=== PATIENT | female | born 1980 | race American Indian/Alaskan Native ===

== ENCOUNTER 2017-01-16 19:30 | Emergency (ER) | payer MEDICAID ==
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
[2017-01-17 05:09] VITALS: BP 118/80
== END 2017-01-17 05:08 | disposition home or self-care (01) ==
LOC: ED 19:30
DX: T23.121A Burn of first degree of single right finger (nail) except thumb, initial encounter (principal); F17.200 Nicotine dependence, unspecified, uncomplicated; X10.2XXA Contact with fats and cooking oils, initial encounter; Y93.G3 Activity, cooking and baking; Y92.000 Kitchen of unspecified non-institutional (private) residence as the place of occurrence of the external cause; Y99.8 Other external cause status
CPT/HCPCS: 99282

== ENCOUNTER 2017-08-20 08:30 | Emergency (ER) | payer MEDICAID, OTHER ==
[2017-08-20 09:23] VITALS: BP 123/84
[2017-08-20] MEDS ORDERED: MOTRIN PO ONE (11:59)
[2017-08-20] MEDS ORDERED: GUAIFENESIN DM SYRUP PO ONE (12:00)
--- NOTE | 2017-08-20 12:01 | Emergency Department Report ---
- General Chief Complaint: Upper Respiratory Infection Stated Complaint: FLU LIKE SYMPTOMS Time Seen by Provider: 08/20/17 10:40 Source: patient Mode of arrival: Ambulatory Limitations: No Limitations - History of Present Illness Initial Comments: 36-year-old female past medical history none presents with complaint of 2-3 days of malaise cough sore throat and runny nose. Patient states that there is slight abnormal smell to her urine. Denies nausea vomiting. States she has slightly productive cough. Patient is awake alert and oriented 3 speaking in full sentences and does not appear toxic does not appear to be in acute distress. MD Complaint: fever, cough, rhinorrhea, nasal congestion Onset/Timin -: days(s) Severity: moderate Improves With: OTC cold medicine Context: sick contacts Associated Symptoms: fever, chills, headache, cough - Related Data Previous Rx's Medication Instructions Recorded Last Taken Type Ibuprofen [Motrin] 800 mg PO Q8HR PRN #30 tablet 01/17/17 Unknown Rx SILVER sulfADIAZINE 50 GRAM 1 applicatio TP BID #1 tube 01/17/17 Unknown Rx [Thermazene 50 Gram] Ibuprofen [Motrin] 800 mg PO Q8HR PRN #30 tablet 08/20/17 Unknown Rx Nitrofurantoin Monohyd/M-Cryst 100 mg PO BID #14 capsule 08/20/17 Unknown Rx [Macrobid 100 mg Capsule] Phenylephrine/Dm/Acetaminop/GG 10 ml PO Q4H PRN #1 liquid 08/20/17 Unknown Rx [Mucinex Fswb-Rhb-Nizpsufhat Lq] Allergies Allergy/AdvReac Type Severity Reaction Status Date / Time Latex, Natural Rubber Allergy Unknown Verified 03/04/16 12:13 ED Review of Systems ROS: Stated complaint: FLU LIKE SYMPTOMS Other details as noted in HPI Constitutional: malaise. denies: chills, fever Eyes: denies: eye pain, eye discharge, vision change ENT: denies: ear pain, throat pain Respiratory: cough. denies: shortness of breath, wheezing Cardiovascular: denies: chest pain, palpitations Endocrine: no symptoms reported Gastrointestinal: denies: abdominal pain, nausea, diarrhea Genitourinary: denies: urgency, dysuria, discharge Musculoskeletal: denies: back pain, joint swelling, arthralgia Skin: denies: rash, lesions Neurological: denies: headache, weakness, paresthesias Psychiatric: denies: anxiety, depression Hematological/Lymphatic: denies: easy bleeding, easy bruising ED Past Medical Hx - Past Medical History Previous Medical History?: Yes Additional medical history: Vaginal delivery x 4 - Surgical History Past Surgical History?: Yes Additional Surgical History: hernia - Social History Smoking Status: Current Every Day Smoker Substance Use Type: Alcohol - Medications Home Medications: Home Medications Medication Instructions Recorded Confirmed Last Taken Type Ibuprofen [Motrin] 800 mg PO Q8HR PRN #30 tablet 01/17/17 Unknown Rx SILVER sulfADIAZINE 50 GRAM 1 applicatio TP BID #1 tube 01/17/17 Unknown Rx [Thermazene 50 Gram] Ibuprofen [Motrin] 800 mg PO Q8HR PRN #30 tablet 08/20/17 Unknown Rx Nitrofurantoin Monohyd/M-Cryst 100 mg PO BID #14 capsule 08/20/17 Unknown Rx [Macrobid 100 mg Capsule] Phenylephrine/Dm/Acetaminop/GG 10 ml PO Q4H PRN #1 liquid 08/20/17 Unknown Rx [Mucinex Fyfr-Ukg-Gbvuojksrp Lq] ED Physical Exam - General Limitations: No Limitations General appearance: alert, in no apparent distress - Head Head exam: Present: atraumatic, normocephalic - Eye Eye exam: Present: normal appearance, PERRL, EOMI - ENT ENT exam: Present: mucous membranes moist - Neck Neck exam: Present: normal inspection, full ROM - Respiratory Respiratory exam: Present: normal lung sounds bilaterally. Absent: respiratory distress - Cardiovascular Cardiovascular Exam: Present: regular rate, normal rhythm. Absent: systolic murmur, diastolic murmur, rubs, gallop - GI/Abdominal GI/Abdominal exam: Present: soft, normal bowel sounds - Extremities Exam Extremities exam: Present: normal inspection - Back Exam Back exam: Present: normal inspection - Neurological Exam Neurological exam: Present: alert, oriented X3 - Psychiatric Psychiatric exam: Present: normal affect, normal mood - Skin Skin exam: Present: warm, dry, intact, normal color. Absent: rash ED Course Vital Signs 08/20/17 08/20/17 09:20 12:14 Temperature 98.4 F Pulse Rate 68 Respiratory 20 22 Rate Blood Pressure 123/84 O2 Sat by Pulse 97 Oximetry ED Medical Decision Making - Medical Decision Making A/P: Urinary tract infection, URI 1-Mucinex when necessary, Motrin when necessary, course of Macrobid 2-follow up with primary care doctor 3-chest x-ray unremarkable. Flu and strep negative. 4- vital signs stable for discharge Critical care attestation.: If time is entered above; I have spent that time in minutes in the direct care of this critically ill patient, excluding procedure time. ED Disposition Clinical Impression: Viral syndrome Upper respiratory infection Qualifiers: URI type: unspecified URI Qualified Code(s): J06.9 - Acute upper respiratory infection, unspecified Urinary tract infection Qualifiers: Urinary tract infection type: acute cystitis Hematuria presence: without hematuria Qualified Code(s): N30.00 - Acute cystitis without hematuria Disposition: TO HOME OR SELFCARE Is pt being admited?: No Does the pt Need Aspirin: No Condition: Stable Instructions: Urinary Tract Infection in Women (ED), Cold Symptoms (ED), Viral Syndrome (ED), Upper Respiratory Infection (ED) Prescriptions: Ibuprofen [Motrin] 800 mg PO Q8HR PRN #30 tablet PRN Reason: Pain Nitrofurantoin Monohyd/M-Cryst [Macrobid 100 mg Capsule] 100 mg PO BID #14 capsule Phenylephrine/Dm/Acetaminop/GG [Mucinex Bgjh-Lyp-Cpmnmqniyh Lq] 10 ml PO Q4H PRN #1 liquid PRN Reason: Cough Referrals: XU HERNANDEZ MD [Primary Care Provider] - 3-5 Days Forms: Work/School Release Form(ED) Time of Disposition: 14:48
--- NOTE | 2017-08-20 12:36 | XRay Report ---
CHEST 2 VIEWS INDICATION: Worsening cough. Evaluate for pneumonia. COMPARISON: None similar at this institution. FINDINGS: PA and lateral chest radiographs demonstrate normal cardiomediastinal silhouette. Right hemidiaphragm slightly elevated with minimal crowding of right lung markings. No dense focal consolidation, pleural effusions or CHF. Intact bones. CONCLUSION: No acute disease in the chest. Thank you for the opportunity to participate in this patient's care.
[2017-08-20 14:28] LABS: Bilirubin,Urine NEG (Negative); Blood,Urine LG (Negative); Ketones,Urine NEG (Negative); Leukocyte Esterase,Urine TR (Negative); Mucus,Urine 2+ /HPF; Nitrite,Urine NEG (Negative); Protein,Urine <15 mg/dL mg/dL (Negative); Urobilinogen,Urine < 2.0 mg/dL (<2.0)
== END 2017-08-20 14:58 | disposition home or self-care (01) ==
LOC: ED 08:30
DX: B34.9 Viral infection, unspecified (principal); J06.9 Acute upper respiratory infection, unspecified; N30.00 Acute cystitis without hematuria; F17.200 Nicotine dependence, unspecified, uncomplicated; Z91.040 Latex allergy status
CPT/HCPCS: 71020; 81001; 81025; 87086; 87116; 87400; 87430; 87491

== ENCOUNTER 2018-04-02 05:56 | Emergency (ER) | payer OTHER ==
[2018-04-02] MEDS ORDERED: TORADOL IM ONE (06:42)
--- NOTE | 2018-04-02 08:24 | XRay Report ---
LUMBOSACRAL SPINE, 3 VIEWS: History: Back pain Findings: The vertebral bodies, disk spaces and posterior elements are intact. No compression deformity or malalignment. The SI joints are symmetric and unremarkable. Impression: 1. No evidence for acute injury to the lumbar spine.
--- NOTE | 2018-04-02 08:25 | XRay Report ---
CERVICAL SPINE, 3 views: History: Neck pain. Findings: The vertebral bodies, disk spaces, posterior elements and prevertebral soft tissues are unremarkable. The dens is intact. No acute fracture or malalignment is identified. Impression: 1. No evidence for acute injury to the cervical spine.
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
[2018-04-02 10:04] VITALS: BP 141/96
== END 2018-04-02 10:21 | disposition home or self-care (01) ==
LOC: ED 05:56
DX: S13.9XXA Sprain of joints and ligaments of unspecified parts of neck, initial encounter (principal); S33.5XXA Sprain of ligaments of lumbar spine, initial encounter; Z91.040 Latex allergy status; V89.2XXA Person injured in unspecified motor-vehicle accident, traffic, initial encounter; Y93.89 Activity, other specified; Y92.89 Other specified places as the place of occurrence of the external cause; Y99.8 Other external cause status
CPT/HCPCS: 72040; 72100; 96372; 99284; J1885

== ENCOUNTER 2018-08-21 15:12 | Emergency (ER) | payer OTHER ==
[2018-08-21 15:31] VITALS: BP 161/88
--- NOTE | 2018-08-21 17:59 | Emergency Department Report ---
ED Back Pain/Injury HPI - General Chief Complaint: Back Pain/Injury Stated Complaint: LEFT LEG PAIN/LOWER BACK PAIN Time Seen by Provider: 08/21/18 17:32 Source: patient Limitations: No Limitations - History of Present Illness MD Complaint: back pain, back injury -: Gradual Similar Symptoms Previously: Yes Place: home Severity: mild Quality: sharp Consistency: constant Improves With: movement - Related Data Previous Rx's Medication Instructions Recorded Last Taken Type Ibuprofen [Motrin] 800 mg PO Q8HR PRN #30 tablet 01/17/17 Unknown Rx SILVER sulfADIAZINE 50 GRAM 1 applicatio TP BID #1 tube 01/17/17 Unknown Rx [Thermazene 50 Gram] Ibuprofen [Motrin] 800 mg PO Q8HR PRN #30 tablet 08/20/17 Unknown Rx Nitrofurantoin Monohyd/M-Cryst 100 mg PO BID #14 capsule 08/20/17 Unknown Rx [Macrobid 100 mg Capsule] Phenylephrine/Dm/Acetaminop/GG 10 ml PO Q4H PRN #1 liquid 08/20/17 Unknown Rx [Mucinex Hobl-Fqq-Icutvoofre Lq] Naproxen [Naprosyn] 500 mg PO Q12H PRN #14 tablet 04/02/18 Unknown Rx Ketorolac [Toradol] 10 mg PO Q6H PRN #15 tablet 08/21/18 Unknown Rx Methocarbamol [Robaxin] 750 mg PO Q8H PRN #21 tablet 08/21/18 Unknown Rx traMADol [Ultram] 50 mg PO Q6HR PRN #20 tablet 08/21/18 Unknown Rx Allergies Allergy/AdvReac Type Severity Reaction Status Date / Time Latex, Natural Rubber Allergy Hives Verified 08/21/18 15:28 ED Review of Systems ROS: Stated complaint: LEFT LEG PAIN/LOWER BACK PAIN Other details as noted in HPI ED Past Medical Hx - Past Medical History Previous Medical History?: No Additional medical history: Vaginal delivery x 4 - Surgical History Past Surgical History?: Yes Additional Surgical History: hernia - Social History Smoking Status: Never Smoker Substance Use Type: None - Medications Home Medications: Home Medications Medication Instructions Recorded Confirmed Last Taken Type Ibuprofen [Motrin] 800 mg PO Q8HR PRN #30 tablet 01/17/17 Unknown Rx SILVER sulfADIAZINE 50 GRAM 1 applicatio TP BID #1 tube 01/17/17 Unknown Rx [Thermazene 50 Gram] Ibuprofen [Motrin] 800 mg PO Q8HR PRN #30 tablet 08/20/17 Unknown Rx Nitrofurantoin Monohyd/M-Cryst 100 mg PO BID #14 capsule 08/20/17 Unknown Rx [Macrobid 100 mg Capsule] Phenylephrine/Dm/Acetaminop/GG 10 ml PO Q4H PRN #1 liquid 08/20/17 Unknown Rx [Mucinex Nuvk-Rxe-Msiwqerbnh Lq] Naproxen [Naprosyn] 500 mg PO Q12H PRN #14 tablet 04/02/18 Unknown Rx Ketorolac [Toradol] 10 mg PO Q6H PRN #15 tablet 08/21/18 Unknown Rx Methocarbamol [Robaxin] 750 mg PO Q8H PRN #21 tablet 08/21/18 Unknown Rx traMADol [Ultram] 50 mg PO Q6HR PRN #20 tablet 08/21/18 Unknown Rx ED Physical Exam - General Limitations: No Limitations ED Course Vital Signs 08/21/18 15:28 Temperature 99 F Pulse Rate 79 Respiratory 18 Rate Blood Pressure 161/88 O2 Sat by Pulse 98 Oximetry Critical care attestation.: If time is entered above; I have spent that time in minutes in the direct care of this critically ill patient, excluding procedure time. ED Disposition Clinical Impression: Sacroiliac joint pain Disposition: DC- TO HOME OR SELFCARE Is pt being admited?: No Does the pt Need Aspirin: No Condition: Stable Instructions: Lumbar Radiculopathy (ED) Prescriptions: Ketorolac [Toradol] 10 mg PO Q6H PRN #15 tablet PRN Reason: Pain Methocarbamol [Robaxin] 750 mg PO Q8H PRN #21 tablet PRN Reason: Spasms traMADol [Ultram] 50 mg PO Q6HR PRN #20 tablet PRN Reason: Pain Referrals: PRIMARY CARE, [Primary Care Provider] - 3-5 Days LY JACKSON MD [Staff Physician] - 3-5 Days
== END 2018-08-21 18:10 | disposition home or self-care (01) ==
LOC: ED 15:12
DX: M53.3 Sacrococcygeal disorders, not elsewhere classified (principal); Z91.040 Latex allergy status; Z91.09 Other allergy status, other than to drugs and biological substances
CPT/HCPCS: 99282

== ENCOUNTER 2019-01-21 11:11 | Emergency (ER) | payer OTHER ==
[2019-01-21 11:16] VITALS: BP 113/81
--- NOTE | 2019-01-21 11:56 | Emergency Department Report ---
HPI - General Chief Complaint: Upper Respiratory Infection - HPI HPI: 38-year-old female presents to the emergency department with a complaint of sinus pressure, sore throat, cough, chills, sweats and body aches going on for the past few days. The cough is mixed dry and productive. She did not actually check herself for any fever. She is a tobacco smoker but denies any illicit drug use. She denies any chest pain, shortness of breath or back pain. No recent travel or sick contacts at home. She has a primary care physician for follow-up. She has not taken anything for her symptoms prior to arrival. ED Past Medical Hx - Past Medical History Previous Medical History?: No Additional medical history: Vaginal delivery x 4 - Surgical History Past Surgical History?: Yes Additional Surgical History: hernia - Social History Smoking Status: Current Every Day Smoker - Medications Home Medications: Home Medications Medication Instructions Recorded Confirmed Last Taken Type Ibuprofen [Motrin] 800 mg PO Q8HR PRN #30 tablet 01/17/17 Unknown Rx SILVER sulfADIAZINE 50 GRAM 1 applicatio TP BID #1 tube 01/17/17 Unknown Rx [Thermazene 50 Gram] Ibuprofen [Motrin] 800 mg PO Q8HR PRN #30 tablet 08/20/17 Unknown Rx Nitrofurantoin Monohyd/M-Cryst 100 mg PO BID #14 capsule 08/20/17 Unknown Rx [Macrobid 100 mg Capsule] Phenylephrine/Dm/Acetaminop/GG 10 ml PO Q4H PRN #1 liquid 08/20/17 Unknown Rx [Mucinex Lpth-Cbd-Bhkcnjrzdv Lq] Naproxen [Naprosyn] 500 mg PO Q12H PRN #14 tablet 04/02/18 Unknown Rx Ketorolac [Toradol] 10 mg PO Q6H PRN #15 tablet 08/21/18 Unknown Rx methOCARBAMOL [Robaxin] 750 mg PO Q8H PRN #21 tablet 08/21/18 Unknown Rx traMADol [Ultram] 50 mg PO Q6HR PRN #20 tablet 08/21/18 Unknown Rx Fluticasone [Flonase] 1 spray NS QDAY #1 bottle 01/21/19 Unknown Rx Loratadine/Pseudoephedrine 1 tab PO DAILY #6 tablet 01/21/19 Unknown Rx [Claritin-D 24Hr] ED Review of Systems ROS: Stated complaint: SINUS/COUGH/TIGHTNESS IN CHEST Other details as noted in HPI Constitutional: chills, diaphoresis Eyes: denies: eye pain, vision change ENT: throat pain. denies: ear pain Respiratory: cough. denies: shortness of breath Cardiovascular: denies: chest pain, palpitations Gastrointestinal: denies: abdominal pain, vomiting Genitourinary: denies: dysuria, discharge Musculoskeletal: myalgia. denies: joint swelling Skin: denies: rash, lesions Neurological: denies: headache, weakness Physical Exam - Physical Exam Vital Signs: Vital Signs 01/21/19 11:15 Temperature 98.2 F Pulse Rate 87 Respiratory 16 Rate Blood Pressure 113/81 O2 Sat by Pulse 98 Oximetry Physical Exam: GENERAL: The patient is well-developed well-nourished. HENT: Normocephalic. Atraumatic. Patient has moist mucous membranes. Oropharynx is clear without tonsillar hypertrophy, erythema or exudates. She has some tenderness to palpation over the maxillary sinuses. Boggy nasal mucosa and patient speaks with nasally voice secondary to congestion. EYES: Extraocular motions are intact. Pupils equal reactive to light bilaterally. NECK: Supple. Trachea is midline. CHEST/LUNGS: Clear to auscultation. There is no respiratory distress noted. No cough heard during examination. No tachypnea or accessory muscle use. HEART/CARDIOVASCULAR: Regular. There is no tachycardia. There is no murmur. ABDOMEN: Abdomen is soft, nontender. Patient has normal bowel sounds. There is no abdominal distention. SKIN: Skin is warm and dry. NEURO: The patient is awake, alert, and oriented. The patient is cooperative. The patient has no focal neurologic deficits. MUSCULOSKELETAL: There is no tenderness or deformity. There is no evidence of acute injury. ED Course Vital Signs 01/21/19 11:15 Temperature 98.2 F Pulse Rate 87 Respiratory 16 Rate Blood Pressure 113/81 O2 Sat by Pulse 98 Oximetry ED Medical Decision Making - Radiology Data Radiology results: image reviewed interpreted by me: Chest x-ray does not show any acute process. There are no pleural effusions, obvious pneumonia and there is no pneumothorax. - Medical Decision Making Patient presents with a few days of head and chest congestion, sore throat and s ome cold-like symptoms. On examination the tonsils do not look enlarged, erythematous and do not have any exudates. A rapid strep test was completed and resulted as negative. A chest x-ray was done that does not show any pleural effusions, pneumonia, focal consolidation, pneumothorax, or any other acute process. Vital signs stable including being afebrile. She appeared most consistent with a viral upper respiratory infection. She has been given some Flonase and Claritin-D. She has good follow-up with primary care. She will return to the ER with any worsening of her symptoms or any acute distress. - Differential Diagnosis viral URI, pneumonia, sinusitis, allergic rhinitis Critical Care Time: No Critical care attestation.: If time is entered above; I have spent that time in minutes in the direct care of this critically ill patient, excluding procedure time. ED Disposition Clinical Impression: Viral pharyngitis, Viral syndrome Upper respiratory infection Qualifiers: URI type: unspecified URI Qualified Code(s): J06.9 - Acute upper respiratory infection, unspecified Disposition: DC- TO HOME OR SELFCARE Is pt being admited?: No Condition: Stable Instructions: Pharyngitis (ED), Upper Respiratory Infection (ED), Viral Syndrome (ED) Additional Instructions: Please follow-up with your primary care physician in the next few days. Return to the emergency Department with any worsening of your symptoms or any acute distress. Prescriptions: Loratadine/Pseudoephedrine [Claritin-D 24Hr] 1 tab PO DAILY #6 tablet Fluticasone [Flonase] 1 spray NS QDAY #1 bottle Referrals: PCP, Your [Other] - 2-3 Days Forms: Work/School Release Form(ED) Time of Disposition: 11:30
--- NOTE | 2019-01-21 14:59 | XRay Report ---
ROUTINE CHEST, TWO VIEWS: HISTORY: Cough. The trachea, heart, mediastinal contour, lung mad[place] and bony thorax are unremarkable. IMPRESSION: Unremarkable chest x-ray.
== END 2019-01-21 13:08 | disposition home or self-care (01) ==
LOC: ED 11:11
DX: J02.9 Acute pharyngitis, unspecified (principal); J06.9 Acute upper respiratory infection, unspecified; B34.9 Viral infection, unspecified; F17.200 Nicotine dependence, unspecified, uncomplicated; Z91.040 Latex allergy status
CPT/HCPCS: 71046; 87116; 87430; 99283

== ENCOUNTER 2019-02-17 06:27 | Emergency (ER) | payer OTHER ==
[2019-02-17] MEDS ORDERED: ASPIRIN PO ONE (06:49)
[2019-02-17 07:00] LABS: Basophils # (Auto) 0.1 K/mm3 (0.0-0.1); Basophils % (Auto) 0.6 % (0.0-1.8); Eosinophils # (Auto) 0.1 K/mm3 (0.0-0.4); Eosinophils % (Auto) 0.7 % (0.0-4.3); Hematocrit 40.9 % (30.3-42.9); Hemoglobin 13.9 gm/dl (10.1-14.3); Lymphocytes # (Auto) 3.3 K/mm3 (1.2-5.4); Lymphocytes % (Auto) 25.4 % (13.4-35.0); Mean Corpuscular HGB Conc 34 % (30-34); Mean Corpuscular Volume 76 fl (79-97); Monocytes # (Auto) 0.6 K/mm3 (0.0-0.8); Platelet Count 207 K/mm3 (140-440); Red Blood Count 5.35 M/mm3 (3.65-5.03); Red Cell Distribution Width 14.9 % (13.2-15.2)
--- NOTE | 2019-02-17 07:04 | XRay Report ---
PROCEDURE: XR CHEST 1V AP TECHNIQUE: Chest radiograph single view. HISTORY: Chest Pain COMPARISONS: 08/20/2017 . FINDINGS: No mediastinal shift. Cardiac silhouette is not enlarged. No pneumothorax, effusion, or focal pulmona ry opacity identified. No acute skeletal findings. IMPRESSION: No acute pulmonary finding identified. This document is electronically signed by Clayton Franks MD., February 17 2019 07:03:09 AM ET
[2019-02-17 07:17] LABS: BUN/Creatinine Ratio 11; Blood Urea Nitrogen 9 mg/dL (7-17); Calcium 9.1 mg/dL (8.4-10.2); Hemolysis Index 21
[2019-02-17] MEDS ORDERED: TORADOL IV ONE (08:49)
[2019-02-17] MEDS ORDERED: MORPHINE IV ONE (08:49)
--- NOTE | 2019-02-17 09:10 | Emergency Department Report ---
ED Chest Pain HPI - General Chief Complaint: Chest Pain Stated Complaint: CHEST PAIN JERRY Time Seen by Provider: 02/17/19 08:29 Source: patient Mode of arrival: Ambulatory Limitations: No Limitations - History of Present Illness Initial Comments: 38-year-old female with no past medical history presents to ED with complaint of left-sided chest pain since last night. States pain is located underneath the left breast, nonradiating, sharp in nature. Pain is worse with inspiration. Patient reported some relief with leaning over and applying pressure to the area. He reports cough. Denies fever, shortness of breath, nausea, diaphoresis. She denies any leg pain or swelling. MD Complaint: chest pain -: Last night Onset: during rest Pain Location: left chest Pain Radiation: none Severity: moderate Severity scale (0 -10): 10 Quality: sharp Consistency: constant Improves With: nothing Worsens With: inspiration re: denies: nausea, vomting, diaphoresis, dyspnea Other Symptoms: cough. denies: fever, leg swelling Treatments Prior to Arrival: none - Related Data Previous Rx's Medication Instructions Recorded Last Taken Type Ibuprofen [Motrin] 800 mg PO Q8HR PRN #30 tablet 01/17/17 Unknown Rx SILVER sulfADIAZINE 50 GRAM 1 applicatio TP BID #1 tube 01/17/17 Unknown Rx [Thermazene 50 Gram] Ibuprofen [Motrin] 800 mg PO Q8HR PRN #30 tablet 08/20/17 Unknown Rx Nitrofurantoin Monohyd/M-Cryst 100 mg PO BID #14 capsule 08/20/17 Unknown Rx [Macrobid 100 mg Capsule] Phenylephrine/Dm/Acetaminop/GG 10 ml PO Q4H PRN #1 liquid 08/20/17 Unknown Rx [Mucinex Txjp-Dnx-Snrozyfuhe Lq] Naproxen [Naprosyn] 500 mg PO Q12H PRN #14 tablet 04/02/18 Unknown Rx Ketorolac [Toradol] 10 mg PO Q6H PRN #15 tablet 08/21/18 Unknown Rx methOCARBAMOL [Robaxin] 750 mg PO Q8H PRN #21 tablet 08/21/18 Unknown Rx traMADol [Ultram] 50 mg PO Q6HR PRN #20 tablet 08/21/18 Unknown Rx Fluticasone [Flonase] 1 spray NS QDAY #1 bottle 01/21/19 Unknown Rx Loratadine/Pseudoephedrine 1 tab PO DAILY #6 tablet 01/21/19 Unknown Rx [Claritin-D 24Hr] Naproxen [Naprosyn] 500 mg PO BID #20 tablet 02/17/19 Unknown Rx Allergies Allergy/AdvReac Type Severity Reaction Status Date / Time Latex, Natural Rubber Allergy Hives Verified 08/21/18 15:28 Heart Score - HEART Score History: Slightly suspicious EKG: Normal Age: < 45 Risk factors: No known risk factors Troponin: < normal limit HEART Score: 0 ED Review of Systems ROS: Stated complaint: CHEST PAIN JERRY Other details as noted in HPI Comment: All other systems reviewed and negative Constitutional: denies: chills, fever Respiratory: cough Cardiovascular: chest pain Gastrointestinal: denies: nausea, vomiting Musculoskeletal: other (denies leg pain or swelling) ED Past Medical Hx - Past Medical History Previous Medical History?: No Additional medical history: Vaginal delivery x 4 - Surgical History Past Surgical History?: Yes Additional Surgical History: hernia - Social History Smoking Status: Current Every Day Smoker Substance Use Type: None - Medications Home Medications: Home Medications Medication Instructions Recorded Confirmed Last Taken Type Ibuprofen [Motrin] 800 mg PO Q8HR PRN #30 tablet 01/17/17 Unknown Rx SILVER sulfADIAZINE 50 GRAM 1 applicatio TP BID #1 tube 01/17/17 Unknown Rx [Thermazene 50 Gram] Ibuprofen [Motrin] 800 mg PO Q8HR PRN #30 tablet 08/20/17 Unknown Rx Nitrofurantoin Monohyd/M-Cryst 100 mg PO BID #14 capsule 08/20/17 Unknown Rx [Macrobid 100 mg Capsule] Phenylephrine/Dm/Acetaminop/GG 10 ml PO Q4H PRN #1 liquid 08/20/17 Unknown Rx [Mucinex Dltp-Rgx-Uvhxbutgxa Lq] Naproxen [Naprosyn] 500 mg PO Q12H PRN #14 tablet 04/02/18 Unknown Rx Ketorolac [Toradol] 10 mg PO Q6H PRN #15 tablet 08/21/18 Unknown Rx methOCARBAMOL [Robaxin] 750 mg PO Q8H PRN #21 tablet 08/21/18 Unknown Rx traMADol [Ultram] 50 mg PO Q6HR PRN #20 tablet 08/21/18 Unknown Rx Fluticasone [Flonase] 1 spray NS QDAY #1 bottle 01/21/19 Unknown Rx Loratadine/Pseudoephedrine 1 tab PO DAILY #6 tablet 01/21/19 Unknown Rx [Claritin-D 24Hr] Naproxen [Naprosyn] 500 mg PO BID #20 tablet 02/17/19 Unknown Rx ED Physical Exam - General Limitations: No Limitations General appearance: alert, in no apparent distress - Head Head exam: Present: atraumatic, normocephalic - Eye Eye exam: Present: normal appearance - ENT ENT exam: Present: mucous membranes moist - Neck Neck exam: Present: normal inspection - Respiratory Respiratory exam: Present: normal lung sounds bilaterally. Absent: respiratory distress - GI/Abdominal GI/Abdominal exam: Present: soft. Absent: distended, tenderness - Extremities Exam Extremities exam: Present: normal inspection. Absent: pedal edema, calf ten derness - Neurological Exam Neurological exam: Present: alert, oriented X3 - Psychiatric Psychiatric exam: Present: normal affect, normal mood - Skin Skin exam: Present: warm, dry, intact, normal color ED Course Vital Signs 02/17/19 02/17/19 02/17/19 08:44 08:48 09:22 Pulse Rate 75 Respiratory 15 15 15 Rate Blood Pressure 117/76 [Left] O2 Sat by Pulse 96 96 Oximetry 02/17/19 02/17/19 02/17/19 09:39 11:23 12:32 Pulse Rate 69 53 L 54 L Respiratory 14 14 13 Rate Blood Pressure 146/87 122/63 113/73 [Left] O2 Sat by Pulse 100 98 97 Oximetry ED Medical Decision Making - Lab Data Result diagrams: 02/17/19 06:51 02/17/19 06:51 - EKG Data -: EKG Interpreted by [place] EKG shows normal: sinus rhythm, axis, intervals, QRS complexes, ST-T waves Rate: normal - EKG Data Interpretation: no acute changes - Radiology Data Radiology results: report reviewed, image reviewed - Medical Decision Making 38-year-old female with pleuritic chest pain since last night. Vitals normal. EKG normal, troponin negative, chest x-ray normal. D-dimer elevated, so CTA Chest was obtained which is also normal. Chest discomfort likely due to pleurisy. Will discharge home with prescription for Naprosyn and advised PCP follow-up. Return precautions given. - Differential Diagnosis pneumonia, PE, ACS, pleurisy Critical care attestation.: If time is entered above; I have spent that time in minutes in the direct care of this critically ill patient, excluding procedure time. ED Disposition Clinical Impression: Chest pain, Pleurisy Disposition: DC-01 TO HOME OR SELFCARE Is pt being admited?: No Condition: Stable Instructions: Chest Pain (ED), Pleurisy (ED) Prescriptions: Naproxen [Naprosyn] 500 mg PO BID #20 tablet Referrals: ALESHA URIBECOLUMBIA MD RUBÉN [Primary Care Provider] - 3-5 Days PRIMARY CAREMD [Referring] - 3-5 Days Forms: Work/School Release Form(ED) Time of Disposition: 12:48
[2019-02-17] MEDS ORDERED: ASPIRIN ONE (09:13)
[2019-02-17 09:18] LABS: INR 0.96 (0.87-1.13)
[2019-02-17 09:19] LABS: Partial Thromboplastin Time 29.1 Sec. (24.2-36.6)
--- NOTE | 2019-02-17 11:28 | Cat Scan Report ---
CTA CHEST: HISTORY: chest pain. COMPARISON: none. TECHNIQUE: Helical CT in 1.25mm intervals following IV contrast. Pulmonary embolus protocol. Sagittal and coronal reformatted images. Rotational MIP images. FINDINGS: Contrast bolus is satisfactory. No pulmonary embolus is identified. Thyroid gland: Normal. Tracheobronchial tree: Normal. Esophagus: Normal. Heart: Normal. Pericardium: Normal. Mediastinum: Normal. Lung Doan: Normal. Pleural Spaces: Trace right pleural fluid is identified layering posteriorly. No left pleural effusion. No pneumothorax. Musculoskeletal: Normal. IMPRESSION: No evidence for pulmonary embolus. Trace right pleural effusion of uncertain significance. Pleurisy?
[2019-02-17 12:33] VITALS: BP 113/73
== END 2019-02-17 13:16 | disposition home or self-care (01) ==
LOC: ED 06:27
DX: R09.1 Pleurisy (principal); F17.200 Nicotine dependence, unspecified, uncomplicated; Z79.899 Other long term (current) drug therapy; Z91.040 Latex allergy status; Z91.048 Other nonmedicinal substance allergy status
CPT/HCPCS: 36415; 71045; 71275; 80048; 84484; 84703; 85025; 85379; 85610; 85730; 93005; 93010; 96374; 96375; 99285; J1885; J2270; Q9967

== ENCOUNTER 2019-03-27 11:22 | Emergency (ER) | payer OTHER ==
[2019-03-27 11:31] VITALS: BP 120/77
--- NOTE | 2019-03-27 11:32 | Event Note ---
ED Screening Note Date of service: 03/27/19 Time: 11:30 ED Screening Note: This is a 38 y.o. F. that presents to the ER with redness and pruritic rash to face since this morning. Current smoker. Denies drooling or difficulty swallowing. This initial assessment/diagnostic orders/clinical plan/treatment(s) is/are subject to change based on patients health status, clinical progression and re- assessment by fellow clinical providers in the ED. Further treatment and workup at subsequent clinical providers discretion. Patient/guardian urged not to elope from the ED as their condition may be serious if not clinically assessed and managed. Initial orders include:
[2019-03-27] MEDS ORDERED: BENADRYL PO ONE (11:46)
[2019-03-27] MEDS ORDERED: DELTASONE PO ONE (12:00)
--- NOTE | 2019-03-27 12:38 | Emergency Department Report ---
ED General Adult HPI - General Chief complaint: Allergic Reaction Stated complaint: FACE REDNESS/ITCHY Time Seen by Provider: 03/27/19 11:29 Source: patient Mode of arrival: Ambulatory Limitations: No Limitations - History of Present Illness Initial comments: Patient is a 38-year-old female who is presenting status post allergic reaction. 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 She denies any new foods or any change in her regimen. Patient states that she has a rash to the face and neck. She denies any difficulty swallowing or breathing at this time. His been no nausea vomiting. - Related Data Previous Rx's Medication Instructions Recorded Last Taken Type Ibuprofen [Motrin] 800 mg PO Q8HR PRN #30 tablet 01/17/17 Unknown Rx SILVER sulfADIAZINE 50 GRAM 1 applicatio TP BID #1 tube 01/17/17 Unknown Rx [Thermazene 50 Gram] Ibuprofen [Motrin] 800 mg PO Q8HR PRN #30 tablet 08/20/17 Unknown Rx Nitrofurantoin Monohyd/M-Cryst 100 mg PO BID #14 capsule 08/20/17 Unknown Rx [Macrobid 100 mg Capsule] Phenylephrine/Dm/Acetaminop/GG 10 ml PO Q4H PRN #1 liquid 08/20/17 Unknown Rx [Mucinex Seza-Tqo-Teekunsaar Lq] Naproxen [Naprosyn] 500 mg PO Q12H PRN #14 tablet 04/02/18 Unknown Rx Ketorolac [Toradol] 10 mg PO Q6H PRN #15 tablet 08/21/18 Unknown Rx methOCARBAMOL [Robaxin] 750 mg PO Q8H PRN #21 tablet 08/21/18 Unknown Rx traMADol [Ultram] 50 mg PO Q6HR PRN #20 tablet 08/21/18 Unknown Rx Fluticasone [Flonase] 1 spray NS QDAY #1 bottle 01/21/19 Unknown Rx Loratadine/Pseudoephedrine 1 tab PO DAILY #6 tablet 01/21/19 Unknown Rx [Claritin-D 24Hr] Naproxen [Naprosyn] 500 mg PO BID #20 tablet 02/17/19 Unknown Rx diphenhydrAMINE [Benadryl CAP] 25 mg PO Q8HR PRN #10 capsule 03/27/19 Unknown Rx predniSONE [Deltasone] 20 mg PO QDAY #5 tab 03/27/19 Unknown Rx Allergies Allergy/AdvReac Type Severity Reaction Status Date / Time Latex, Natural Rubber Allergy Hives Verified 08/21/18 15:28 ED Review of Systems ROS: Stated complaint: FACE REDNESS/ITCHY Other details as noted in HPI Comment: All other systems reviewed and negative ED Past Medical Hx - Past Medical History Previous Medical History?: No Additional medical history: Vaginal delivery x 4 - Surgical History Additional Surgical History: Hernia repair - Social History Smoking Status: Current Every Day Smoker Substance Use Type: None - Medications Home Medications: Home Medications Medication Instructions Recorded Confirmed Last Taken Type Ibuprofen [Motrin] 800 mg PO Q8HR PRN #30 tablet 01/17/17 Unknown Rx SILVER sulfADIAZINE 50 GRAM 1 applicatio TP BID #1 tube 01/17/17 Unknown Rx [Thermazene 50 Gram] Ibuprofen [Motrin] 800 mg PO Q8HR PRN #30 tablet 08/20/17 Unknown Rx Nitrofurantoin Monohyd/M-Cryst 100 mg PO BID #14 capsule 08/20/17 Unknown Rx [Macrobid 100 mg Capsule] Phenylephrine/Dm/Acetaminop/GG 10 ml PO Q4H PRN #1 liquid 08/20/17 Unknown Rx [Mucinex Aoaw-Bxo-Wuihysnlnw Lq] Naproxen [Naprosyn] 500 mg PO Q12H PRN #14 tablet 04/02/18 Unknown Rx Ketorolac [Toradol] 10 mg PO Q6H PRN #15 tablet 08/21/18 Unknown Rx methOCARBAMOL [Robaxin] 750 mg PO Q8H PRN #21 tablet 08/21/18 Unknown Rx traMADol [Ultram] 50 mg PO Q6HR PRN #20 tablet 08/21/18 Unknown Rx Fluticasone [Flonase] 1 spray NS QDAY #1 bottle 01/21/19 Unknown Rx Loratadine/Pseudoephedrine 1 tab PO DAILY #6 tablet 01/21/19 Unknown Rx [Claritin-D 24Hr] Naproxen [Naprosyn] 500 mg PO BID #20 tablet 02/17/19 Unknown Rx diphenhydrAMINE [Benadryl CAP] 25 mg PO Q8HR PRN #10 capsule 03/27/19 Unknown Rx predniSONE [Deltasone] 20 mg PO QDAY #5 tab 03/27/19 Unknown Rx ED Physical Exam - General Limitations: No Limitations General appearance: alert, in no apparent distress - Head Head exam: Present: atraumatic, normocephalic - Eye Eye exam: Present: normal appearance, PERRL, EOMI - ENT ENT exam: Present: mucous membranes moist - Neck Neck exam: Present: normal inspection - Respiratory Respiratory exam: Present: normal lung sounds bilaterally. Absent: respiratory distress, wheezes, rales, rhonchi - Cardiovascular Cardiovascular Exam: Present: regular rate, normal rhythm. Absent: systolic murmur, diastolic murmur, rubs, gallop - GI/Abdominal GI/Abdominal exam: Present: soft, normal bowel sounds. Absent: distended, tenderness, guarding, rebound - Extremities Exam Extremities exam: Present: normal inspection - Back Exam Back exam: Present: normal inspection - Neurological Exam Neurological exam: Present: alert, oriented X3 - Psychiatric Psychiatric exam: Present: normal affect, normal mood - Skin Skin exam: Present: warm, dry, intact, normal color, rash ED Course Vital Signs 03/27/19 11:30 Temperature 98.3 F Pulse Rate 75 Respiratory 18 Rate Blood Pressure 120/77 O2 Sat by Pulse 98 Oximetry ED Medical Decision Making - Medical Decision Making Patient is a 2-year-old Female was presented status post minor allergic reaction. Patient does not appear to be in anaphylaxis. Patient was given oral Benadryl and prednisone will be discharged home. Critical care attestation.: If time is entered above; I have spent that time in minutes in the direct care of this critically ill patient, excluding procedure time. ED Disposition Clinical Impression: Allergic reaction Qualifiers: Encounter type: initial encounter Qualified Code(s): T78.40XA - Allergy, unspecified, initial encounter Disposition: DC-01 TO HOME OR SELFCARE Is pt being admited?: No Does the pt Need Aspirin: No Condition: Stable Instructions: Allergies (ED) Referrals: CARLTON DUPREE MD [Primary Care Provider] - 3-5 Days Time of Disposition: 12:38
== END 2019-03-27 12:44 | disposition home or self-care (01) ==
LOC: ED 11:22 → EEVIPCON 11:22 → ED 12:44
DX: T78.40XA Allergy, unspecified, initial encounter (principal); F17.200 Nicotine dependence, unspecified, uncomplicated; Z91.040 Latex allergy status; Y92.89 Other specified places as the place of occurrence of the external cause
CPT/HCPCS: 99282; J7512

== ENCOUNTER 2019-10-26 11:11 | Emergency (ER) | payer SELFPAY ==
[2019-10-26 11:25] VITALS: BP 143/90
[2019-10-26] MEDS ORDERED: dexAMETHasone 20 MG/5 ML VIAL IV ONE (11:25)
[2019-10-26] MEDS ORDERED: FAMOTIDINE 20 MG/2 ML INJ IV ONE ×2 (11:25→11:37)
[2019-10-26] MEDS ORDERED: diphenhydrAMINE 50 MG/ML VIAL IV ONE (11:25)
--- NOTE | 2019-10-26 11:25 | Event Note ---
ED Screening Note ED Screening Note: states she took a medication that has acetominophen and benadryl then one hour later began to have a diffuse rash, itching, and felt overheated no SOB no throat swelling no difficulty swallowing PMHx none no allergies to meds LNMP: 2 weeks ago This initial assessment/diagnostic orders/clinical plan/treatment(s) is/are subject to change based on patients health status, clinical progression and re- assessment by fellow clinical providers in the ED. Further treatment and workup at subsequent clinical providers discretion. Patient/guardian urged not to elope from the ED as their condition may be serious if not clinically assessed and managed. Initial orders include: meds/ACC eval
[2019-10-26] MEDS ORDERED: SODIUM CHLORIDE 0.9% 1000 ML 1,000 ML IV ONE (11:31)
[2019-10-26] MEDS ORDERED: SODIUM CHLORIDE 0.9% 1000 ML 1,000 ML ONE (11:37)
[2019-10-26] MEDS ORDERED: dexAMETHasone 20 MG/5 ML VIAL ONE (11:37)
[2019-10-26] MEDS ORDERED: diphenhydrAMINE 50 MG/ML VIAL ONE (11:37)
--- NOTE | 2019-10-26 12:06 | Emergency Department Report ---
ED Rash HPI - HPI Chief Complaint: Skin Rash Stated Complaint: allergic reaction Time Seen by Provider: 10/26/19 11:23 Duration: Today Location: Neck, Chest, Other (face) Suspected Cause: Medication Rash Symptoms: Yes Itching, No Facial Swelling, No Tongue/Oral Swelling, No Breathing Difficulties, No Choking Sensation, No Wheezing/Dyspnea, No Peeling, No Blistering, No Fever, No Lightheaded, No Malaise, No Myalgias Severity: mild Other History: This is a 38-year-old female nontoxic, well nourished in appearance, no acute signs of distress presents to the ED with c/o of rash and itching after taking medication [id number] earlier today. Patient states it is itching and redness. Patient denies any drooling, hoarseness or facial swelling. Patient denies any trauma. She denies any fever, chills, nausea, vomiting, chest pain, shortness of breath, headache, stiff neck, numbness or tingling. Patient stated allergies to latex with no significant past medical history. ED Review of Systems ROS: Stated complaint: allergic reaction Other details as noted in HPI Constitutional: denies: chills, fever Eyes: denies: eye pain, eye discharge, vision change ENT: denies: ear pain, throat pain Respiratory: denies: cough, shortness of breath, wheezing Cardiovascular: denies: chest pain, palpitations Endocrine: no symptoms reported Gastrointestinal: denies: abdominal pain, nausea, diarrhea Genitourinary: denies: urgency, dysuria, discharge Musculoskeletal: denies: back pain, joint swelling, arthralgia Skin: rash. denies: lesions Neurological: denies: headache, weakness, paresthesias Psychiatric: denies: anxiety, depression Hematological/Lymphatic: denies: easy bleeding, easy bruising ED Past Medical Hx - Past Medical History Previous Medical History?: No Additional medical history: Vaginal delivery x 4 - Surgical History Past Surgical History?: Yes Additional Surgical History: Hernia repair - Social History Smoking Status: Never Smoker Substance Use Type: None - Medications Home Medications: Home Medications Medication Instructions Recorded Confirmed Last Taken Type Ibuprofen [Motrin] 800 mg PO Q8HR PRN #30 tablet 01/17/17 Unknown Rx SILVER sulfADIAZINE 50 GRAM 1 applicatio TP BID #1 tube 01/17/17 Unknown Rx [Thermazene 50 Gram] Ibuprofen [Motrin] 800 mg PO Q8HR PRN #30 tablet 08/20/17 Unknown Rx Nitrofurantoin Monohyd/M-Cryst 100 mg PO BID #14 capsule 08/20/17 Unknown Rx [Macrobid 100 mg Capsule] Phenylephrine/Dm/Acetaminop/GG 10 ml PO Q4H PRN #1 liquid 08/20/17 Unknown Rx [Mucinex Elza-Rnt-Bhitnqhmqo Lq] Naproxen [Naprosyn] 500 mg PO Q12H PRN #14 tablet 04/02/18 Unknown Rx Ketorolac [Toradol] 10 mg PO Q6H PRN #15 tablet 08/21/18 Unknown Rx methOCARBAMOL [Robaxin] 750 mg PO Q8H PRN #21 tablet 08/21/18 Unknown Rx traMADoL [Ultram] 50 mg PO Q6HR PRN #20 tablet 08/21/18 Unknown Rx Fluticasone [Flonase] 1 spray NS QDAY #1 bottle 01/21/19 Unknown Rx Loratadine/Pseudoephedrine 1 tab PO DAILY #6 tablet 01/21/19 Unknown Rx [Claritin-D 24Hr] Naproxen [Naprosyn] 500 mg PO BID #20 tablet 02/17/19 Unknown Rx diphenhydrAMINE [Benadryl CAP] 25 mg PO Q8HR PRN #10 capsule 03/27/19 Unknown Rx predniSONE [Deltasone] 20 mg PO QDAY #5 tab 03/27/19 Unknown Rx Prednisone [predniSONE 10 mg 10 mg PO .TAPER #1 tab.ds.pk 10/26/19 Unknown Rx (6-Day Pack, 21 Tabs)] diphenhydrAMINE [Benadryl CAP] 25 mg PO Q8HR PRN #20 capsule 10/26/19 Unknown Rx Rash Exam - Exam General: Vital signs noted. No distress. Alert and acting appropriately. HEENT: No Periorbital Edema, No Conjuctival Injection, No Chemosis, No Perioral Edema, No Tongue Edema, No Uvular Edema, No Compromised Airway, No Drooling Lungs: Yes Good Air Exchange (Normal Breath Sounds), No Wheezes, No Ronchi, No Stridor, No Cough, No Labored Respirations, No Retractions, No Use of Accessory Muscles, No Other Abnormal Lung Sounds Heart: Yes Regular, No Murmur Skin: Yes Urticarial Rash, No Maculopapular Rash, No Morbilliform rash, No Bulla(e), No Excoriations, No Weeping, No Tenderness, No Erythema, No Edema, No Encrustations, No Other Other: Positive: Abdomen Normal, Neurologic Normal, Musculoskeletal Normal ED Course Vital Signs 10/26/19 11:23 Temperature 98.0 F Pulse Rate 81 Respiratory 18 Rate Blood Pressure 143/90 O2 Sat by Pulse 100 Oximetry - Reevaluation(s) Reevaluation #1: 10/26/19 12:03 Patient is speaking in full sentences with no signs of distress noted. ED Medical Decision Making - Medical Decision Making This is a 38-year-old female that presents with allergic reaction. Patient is stable was examined by me. There is no facial swelling. No angioedema. There is no cellulitis. No hoarseness. Patient received 1 L normal saline, Benadryl, Decadron, and Pepcid in the ED IV. Patient was instructed not to operate any machinery after discharge due to possible drowsiness of Benadryl. Patient stated that a family member will drive patient home after discharge. Patient is discharged with prednisone and Benadryl. Patient was referred to Follow-up with a primary care doctor in 3-5 days or if symptoms worsen and continue return to emergency room as soon as possible. At time of discharge, the patient does not seem toxic or ill in appearance. No acute signs of distress noted. Patient agrees to discharge treatment plan of care. No further questions noted by the patient. Critical care attestation.: If time is entered above; I have spent that time in minutes in the direct care of this critically ill patient, excluding procedure time. ED Disposition Clinical Impression: Urticaria Allergic reaction Qualifiers: Encounter type: initial encounter Qualified Code(s): T78.40XA - Allergy, unspecified, initial encounter Disposition: - TO HOME OR SELFCARE Is pt being admited?: No Does the pt Need Aspirin: No Condition: Stable Instructions: Urticaria (ED), Diphenhydramine (By mouth) Additional Instructions: Follow-up with a primary care doctor in 3-5 days or if symptoms worsen and continue return to emergency room as soon as possible. Prescriptions: diphenhydrAMINE [Benadryl CAP] 25 mg PO Q8HR PRN #20 capsule PRN Reason: Itching Prednisone [predniSONE 10 mg (6-Day Pack, 21 Tabs)] 10 mg PO .TAPER #1 tab.ds.pk Referrals: PRIMARY CAREMD [Referring] - 3-5 Days RUBEN ESTRADA MD [Staff Physician] - 3-5 Days [facility] [Outside] - 3-5 Days Forms: Work/School Release Form(ED)
== END 2019-10-26 13:05 | disposition home or self-care (01) ==
LOC: ED 11:11
DX: L50.9 Urticaria, unspecified (principal); T78.40XA Allergy, unspecified, initial encounter; Y92.89 Other specified places as the place of occurrence of the external cause
CPT/HCPCS: 96374; 96375; 99282; J1100; J1200; J7030

== ENCOUNTER 2020-03-24 19:15 | Emergency (ER) | payer OTHER ==
[2020-03-24 19:43] VITALS: BP 128/93
--- NOTE | 2020-03-24 21:01 | XRay Report ---
LEFT FOREARM 2 VIEWS INDICATION / CLINICAL INFORMATION: pain and swelling COMPARISON: None available. FINDINGS: BONES / JOINT(S): Transverse fracture through the distal radial metaphysis. A longitudinal split exte nds into the radiocarpal joint. The carpal bones are intact. Overlying splint. SOFT TISSUES: No significant abnormality. ADDITIONAL FINDINGS: None. Signer Name: Dread Sellers MD Signed: 03/24/2020 8:56 PM Workstation Name: [id number]
[2020-03-24] MEDS ORDERED: HYDROmorphone 1 MG/1 ML INJ IM ONE (21:02)
[2020-03-24] MEDS ORDERED: ONDANSETRON 4 MG/2 ML INJ IM ONE (21:02)
[2020-03-24] MEDS ORDERED: oxyCODONE /ACETAMINOPHEN 5-325MG TAB ONE (21:03)
[2020-03-24] MEDS ORDERED: HYDROmorphone 1 MG/1 ML INJ ONE (21:05)
[2020-03-24] MEDS ORDERED: ONDANSETRON 4 MG/2 ML INJ ONE (21:05)
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
== END 2020-03-24 22:50 | disposition home or self-care (01) ==
LOC: ED 19:15
DX: S52.92XA Unspecified fracture of left forearm, initial encounter for closed fracture (principal); Z98.890 Other specified postprocedural states; Z79.1 Long term (current) use of non-steroidal anti-inflammatories (NSAID); Z79.899 Other long term (current) drug therapy; Z91.040 Latex allergy status; Z88.8 Allergy status to other drugs, medicaments and biological substances; V03.90XA Pedestrian on foot injured in collision with car, pick-up truck or van, unspecified whether traffic or nontraffic accident, initial encounter; Y93.89 Activity, other specified; Y92.410 Unspecified street and highway as the place of occurrence of the external cause; Y99.8 Other external cause status
CPT/HCPCS: 73090; 96372; 99284; J1170; J2405

== ENCOUNTER 2020-04-14 11:17 | Day surgery (SDC) | payer OTHER ==
[~2020-04-14 11:17] MED LIST: CELECOXIB 200 MG CAP PO NR; GABAPENTIN 300 MG CAP PO NR; LACTATED RINGERS 1,000 ML IV SCH; MAGNESIUM OXIDE 400 MG TAB PO SCH; MIDAZOLAM 2 MG/2 ML INJ IV NR; ceFAZolin/STERILE WATER 2 GM/20 ML SYRINGE IV NR; fentaNYL 100 MCG/2 ML INJ IV PRN
[2020-04-14] MEDS ORDERED: SCOPOLAMINE TRANSDERMAL PATCH 72 HR TD ONE (12:02)
--- NOTE | 2020-04-14 12:02 | Anesthesia Day of Surgery ---
Anesthesia Day of Surgery - Day of Surgery Patient Examined: Yes Patient H&P Reviewed: Yes Patient is NPO: Yes
--- NOTE | 2020-04-14 12:02 | Anesthesia Consultation ---
Anesthesia Consult and Med Hx Date of service: 04/14/20 - Airway Anesthetic Teeth Evaluation: Poor ROM Head & Neck: Adequate Mental/Hyoid Distance: Adequate Mallampati Class: Class I Intubation Access Assessment: Good - Pulmonary Exam CTA: Yes - Cardiac Exam Cardiac Exam: RRR - Pre-Operative Health Status ASA Pre-Surgery Classification: ASA2 Proposed Anesthetic Plan: General Nerve Block: Supraclavicular - Pulmonary Hx Smoking: Yes (10pk yr hx) Hx Respiratory Symptoms: No Hx Sleep Apnea: No (GUERA PRE SCREEN NEGATIVE) - Cardiovascular System Hx Hypertension: No Hx Heart Attack/AMI: No - Central Nervous System CVA: No - Gastrointestinal Hx Gastroesophageal Reflux Disease: No - Endocrine Hx Renal Disease: No Hx Liver Disease: No Hx Insulin Dependent Diabetes: No Hx Non-Insulin Dependent Diabetes: No Hx Thyroid Disease: No - Other Systems Hx Obesity: Yes (BMI 34)
[2020-04-14] MEDS ORDERED: ONDANSETRON 4 MG/2 ML INJ ONE (12:54)
[2020-04-14] MEDS ORDERED: fentaNYL 100 MCG/2 ML INJ ONE (12:54)
[2020-04-14] MEDS ORDERED: dexAMETHasone 20 MG/5 ML VIAL ONE (12:54)
[2020-04-14] MEDS ORDERED: GLYCOPYRROLATE 0.4 MG/2 ML INJ ONE (12:54)
[2020-04-14] MEDS ORDERED: PHENYLEPHRINE/NS 1,000 MCG/10 ML SYRINGE (OR USE) IV ONE (12:54)
[2020-04-14] MEDS ORDERED: propofoL 200 MG/20 ML VIAL IV ONE (12:54)
[2020-04-14] MEDS ORDERED: LIDOCAINE MPF (2%) 20 MG/1 ML VIAL 5 ML ONE (12:54)
[2020-04-14] MEDS ORDERED: ROPIVACAINE/PF (0.5%) 5 MG/1 ML 30 ML VIAL ONE (12:58)
[2020-04-14] MEDS ORDERED: HYDROmorphone 1 MG/1 ML INJ ONE (14:05)
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
[2020-04-14 16:50] VITALS: BP 129/86
--- NOTE | 2020-04-14 18:28 | Post Anesthesia Evaluation ---
- Post Anesthesia Evaluation Patient Participated: Yes Airway Patent: Yes Stable Respiratory Function: Yes Nausea/Vomiting: No Temp > 96.8F: Yes Pain Manageable: Yes Adequeate Hydration: Yes Anesthesia Complications: No
--- NOTE | 2020-04-14 19:25 | XRay Report ---
XR wrist 2V LT INDICATION / CLINICAL INFORMATION: LT WRIST PAIN. Intraoperative fluoroscopy during open reduction internal fixation of the left wrist COMPARISON: Left forearm radiograph 03/24/2020 FINDINGS: Fluoroscopic images are obtained during open reduction internal fixation of the previously seen dista l radial fracture, with the previously seen fracture in near anatomic alignment following placement o f internal plate and screws. Fluoroscopy time: 1.5 minutes. Fluoroscopic images: 2. IMPRESSION: 1. Fluoroscopic images during left wrist ORIF. Signer Name: Juanis Park MD Signed: 04/14/2020 7:21 PM Workstation Name: [id number]
== END 2020-04-14 17:35 | disposition home or self-care (01) ==
LOC: OR 11:17
PROVIDERS: ATTEND Orthopaedic Surgery
DX: S52.502A Unspecified fracture of the lower end of left radius, initial encounter for closed fracture (principal); F17.210 Nicotine dependence, cigarettes, uncomplicated; E66.9 Obesity, unspecified; F32.9 Major depressive disorder, single episode, unspecified; Z98.890 Other specified postprocedural states; Z79.899 Other long term (current) drug therapy; Z68.34 Body mass index [BMI] 34.0-34.9, adult; X58.XXXA Exposure to other specified factors, initial encounter; Y93.89 Activity, other specified; Y92.89 Other specified places as the place of occurrence of the external cause; Y99.8 Other external cause status
CPT/HCPCS: 25606; 64417; 73100; 81025; C1713; J0690; J1100; J1170; J2250; J2370; J2405; J2704; J2795; J3010; J7120; 64450

== ENCOUNTER 2021-09-24 10:11 | Emergency (ER) | payer OTHER ==
[2021-09-24 10:50] VITALS: BP 123/91
[2021-09-24] MEDS ORDERED: KETOROLAC 30 MG/1 ML INJ IM ONE (10:55)
--- NOTE | 2021-09-24 10:56 | Emergency Department Report ---
ED Back Pain/Injury HPI - General Chief Complaint: Back Pain/Injury Stated Complaint: BACK PAIN X1DAY Time Seen by Provider: 09/24/21 10:51 Source: patient Limitations: No Limitations - History of Present Illness Initial Comments: Patient presents with a several day history of back pain. This is bilateral flank area right greater than left. There is no trauma associate with this. Has no fevers or chills but is no cough congestion. Patient states she just does not feel good. She was concerned because the pain is worse with inspiration and movement. She does not feel short of breath. There has been no cough. There has been no trauma. Has no recent travel. Patient denies pain or swelling in the legs. She has had no history of immobility. Patient states she is never had pain like this before. There is no dysuria or hematuria, although she does states she is currently on her menstrual cycle. - Related Data Previous Rx's Medication Instructions Recorded Last Taken Type Ibuprofen [Motrin] 800 mg PO Q8HR PRN #30 tablet 09/24/21 Unknown Rx Allergies Allergy/AdvReac Type Severity Reaction Status Date / Time Latex, Natural Rubber Allergy Hives Verified 08/21/18 15:28 ED Review of Systems ROS: Stated complaint: BACK PAIN X1DAY Other details as noted in HPI Comment: All other systems reviewed and negative Constitutional: denies: fever Eyes: denies: vision change ENT: denies: throat pain Respiratory: denies: cough Cardiovascular: denies: chest pain Endocrine: denies: unexplained weight loss Gastrointestinal: denies: abdominal pain Genitourinary: denies: dysuria Musculoskeletal: as per HPI Skin: denies: rash Neurological: denies: headache Hematological/Lymphatic: denies: easy bruising ED Past Medical Hx - Past Medical History Hx Hypertension: No Hx Heart Attack/AMI: No Hx Liver Disease: No Hx Renal Disease: No Hx Sickle Cell Disease: No (SC TRAIT ONLY) Hx HIV: No Additional medical history: Vaginal delivery x 4 - Surgical History Additional Surgical History: Hernia repair - Family History Family history: other (Sickle trait) - Social History Smoking Status: Current Every Day Smoker - Medications Home Medications: Home Medications Medication Instructions Recorded Confirmed Last Taken Type Ibuprofen [Motrin] 800 mg PO Q8HR PRN #30 tablet 09/24/21 Unknown Rx ED Physical Exam - General Limitations: No Limitations, Other (Pulse ox noted and normal) General appearance: alert, in no apparent distress - Head Head exam: Present: atraumatic, normocephalic - Eye Eye exam: Present: normal appearance, EOMI - ENT ENT exam: Present: normal orophraynx, normal external ear exam - Neck Neck exam: Present: normal inspection. Absent: meningismus - Respiratory Respiratory exam: Present: normal lung sounds bilaterally. Absent: respiratory distress - Cardiovascular Cardiovascular Exam: Present: regular rate, normal rhythm - GI/Abdominal GI/Abdominal exam: Present: soft. Absent: tenderness - Extremities Exam Extremities exam: Present: normal capillary refill - Back Exam Back exam: Present: CVA tenderness (R), CVA tenderness (L) - Neurological Exam Neurological exam: Present: alert, oriented X3, normal gait, reflexes normal. Absent: motor sensory deficit - Psychiatric Psychiatric exam: Present: normal affect, normal mood - Skin Skin exam: Present: warm, dry ED Course Vital Signs 09/24/21 10:49 Temperature 99.2 F Pulse Rate 89 Respiratory 20 Rate Blood Pressure 123/91 [Right] O2 Sat by Pulse 99 Oximetry - Reevaluation(s) Reevaluation #1: 09/24/21 10:56 Labs ordered. Reevaluation #2: 09/24/21 15:[address] was ordered. CT was noted. Patient does not have obvious pathology. She was discharged. ED Medical Decision Making - Lab Data Result diagrams: 09/24/21 11:00 - Radiology Data Radiology results: report reviewed - Medical Decision Making Patient presents with bilateral flank pain, right greater than left. She did have hematuria but was on her menstrual cycle. There are white cells, but the patient does not have dysuria or frequency. Culture was pending. We will not treat her empirically for pyelonephritis. CT failed to demonstrate any acute pathology. There is no evidence of emphysematous pyelonephritis. She does not have a AAA or any other mass or tumor. There is no perforation. She does not have ureteral colic. Patient was treated symptomatically and referred for outpatient evaluation and follow-up. Patient does not have shortness of breath and is not hypoxic. There is no risk factor for PE. I do not believe the flank pain is related to pulmonary embolism. Critical Care Time: No Critical care attestation.: If time is entered above; I have spent that time in minutes in the direct care of this critically ill patient, excluding procedure time. ED Disposition Clinical Impression: Flank pain Disposition: 01 HOME / SELF CARE / HOMELESS Is pt being admited?: No Condition: Stable Instructions: Flank Pain, Adult, Itrq-vo-Yfor, Pain Without a Known Cause Additional Instructions: DRINK WATER. RETURN FOR PROBLEMS. SEE YOUR DOCTOR OR THE REFERRAL DOCTOR FOR RECHECK. Prescriptions: Ibuprofen [Motrin] 800 mg PO Q8HR PRN #30 tablet PRN Reason: Pain, Moderate (4-6) Referrals: BERNADINE MARTINEZ MD [Staff Physician] - 3-5 Days PRIMARY CARE, [Primary Care Provider] - 3-5 Days
[2021-09-24] MEDS ORDERED: LIDOCAINE (1%) 10 MG/1 ML VIAL 20 ML MDV ONE (11:03)
[2021-09-24 11:34] LABS: Blood Urea Nitrogen 6 mg/dL (7-17); Calcium 8.7 mg/dL (8.4-10.2); Hemolysis Index 6
[2021-09-24 11:42] LABS: Bilirubin,Urine NEG (Negative); Blood,Urine LG (Negative); Color,Urine Amber (Yellow); Mucus,Urine 3+ /HPF; Urobilinogen,Urine < 2.0 mg/dL (<2.0)
[2021-09-24 11:48] LABS: BUN/Creatinine Ratio 9
--- NOTE | 2021-09-24 13:25 | Cat Scan Report ---
CT ABDOMEN AND PELVIS WITHOUT CONTRAST INDICATION: Flank pain with hematuria, evaluate for stone CONTRAST: Without IV COMPARISON: CTA chest 02/17/[address] scans at this location are performed using CT dose reduction for ALARA by means of automated e xposure control. NOTE: Resolution is decreased and artifact is introduced by the patient's size. FINDINGS: Lung bases are clear. No pneumoperitoneum is seen. Midline abdominal wall laxity is noted. Gallbladder and bile ducts appear within normal limits. No abdominal masses are seen. No lymph adenop athy is noted. No free fluid is seen. No evidence of bowel obstruction is noted. Appendix is mildly p rominent in size basally at 7 mm but distally is within normal limits and no inflammation is seen; I believe this is a normal variant in appearance and do not favor inflammation of the appendix. No adne xal masses are seen. No urinary tract calculi or evidence of obstruction are noted. Small calcifications in the lower pelv is appear to be extra ureteral and vascular. IMPRESSION: No acute abnormalities are seen Signer Name: Bertin Rojo MD Signed: 09/24/2021 1:21 PM Workstation Name: [id number]
== END 2021-09-24 13:37 | disposition home or self-care (01) ==
LOC: ED 10:11 → EEVIPCON 10:11 → ED 13:37
DX: R10.9 Unspecified abdominal pain (principal); Z98.890 Other specified postprocedural states; Z79.899 Other long term (current) drug therapy; Z91.040 Latex allergy status; Z91.048 Other nonmedicinal substance allergy status; F17.200 Nicotine dependence, unspecified, uncomplicated
CPT/HCPCS: 36415; 74176; 80048; 81001; 87086; 96372; 99284; J1885; J3490

== ENCOUNTER 2022-02-28 06:27 | Emergency (ER) | payer OTHER ==
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
--- NOTE | 2022-02-28 10:15 | Emergency Department Report ---
Minor Respiratory - HPI Chief Complaint: Pain General Stated Complaint: JERRY/BODY PAIN/COLD CHILLS Time Seen by Provider: 02/28/22 07:58 ED Review of Systems ROS: Stated complaint: JERRY/BODY PAIN/COLD CHILLS Other details as noted in HPI Comment: All other systems reviewed and negative ED Past Medical Hx - Past Medical History Previous Medical History?: No Hx Hypertension: No Hx Heart Attack/AMI: No Hx Liver Disease: No Hx Renal Disease: No Hx Sickle Cell Disease: No ([facility] TRA[facility] ONLY) Hx HIV: No Additional medical history: Vaginal delivery x 4 - Surgical History Past Surgical History?: Yes Additional Surgical History: Hernia repair - Social History Smoking Status: Never Smoker Substance Use Type: None - Medications Home Medications: Home Medications Medication Instructions Recorded Confirmed Last Taken Type Ibuprofen [Motrin] 800 mg PO Q8HR PRN #30 tablet 09/24/21 Unknown Rx Minor Respiratory Exam - Exam General: Vital signs noted. No distress. Alert and acting appropriately. Neurologic: Alert and oriented, no deficits. Musculoskeletal: Unremarkable. ED Course Vital Signs 02/28/22 06:43 Temperature 99.0 F Pulse Rate 88 Respiratory 18 Rate Blood Pressure 135/91 [Left] O2 Sat by Pulse 97 Oximetry Critical care attestation.: If time is entered above; I have spent that time in minutes in the direct care of this critically ill patient, excluding procedure time. ED Disposition Clinical Impression: COVID Disposition: 01 HOME / SELF CARE / HOMELESS Is pt being admited?: No Does the pt Need Aspirin: No Condition: Stable Instructions: COVID-19 Frequently Asked Questions Additional Instructions: STAY WELL HYDRATED WITH WATER DIET AND ACTIVITY TOLERATED OVER THE COUNTER SYMPTOM RELIEF FOLLOW UP WITH PCP IN 48 HOURS TO BE SURE YOU ARE IMPROVING Referrals: RUBEN ESTRADA MD [Primary Care Provider] - 3-5 Days Forms: Work/School Release Form(ED) Time of Disposition: 10:21
[2022-02-28 11:06] VITALS: BP 142/78
== END 2022-02-28 11:06 | disposition home or self-care (01) ==
LOC: ED 06:27
DX: U07.1 COVID-19 (principal); Z91.040 Latex allergy status; Z79.899 Other long term (current) drug therapy
CPT/HCPCS: 71045; 99283